=== PATIENT | male | born 1965 | race Caucasian/White ===

== ENCOUNTER 2021-04-04 22:11 | Emergency (ER) | payer OTHER | END 2021-04-05 01:23 | disposition home or self-care (01) | LOC: ERS 22:11 | DX: M71.21 Synovial cyst of popliteal space [Baker], right knee (principal); E66.01 Morbid (severe) obesity due to excess calories; E11.9 Type 2 diabetes mellitus without complications; I10 Essential (primary) hypertension; Z87.891 Personal history of nicotine dependence; Z79.82 Long term (current) use of aspirin; Z79.84 Long term (current) use of oral hypoglycemic drugs; Z79.899 Other long term (current) drug therapy ==